=== PATIENT | female | born 1935 | race Caucasian/White ===

== ENCOUNTER 2016-04-30 14:45 | Emergency (ER) | payer MEDICARE, OTHER ==
[2016-04-30] MEDS ORDERED: Aspirin Low Dose CHEW TAB* 81 MG PO ONE (15:46)
--- NOTE | 2016-04-30 16:16 | RAD ---
INDICATION: Fatigue. Recent neck and jaw pain. Associated shortness of breath. COMPARISON: September 20, 2014 CT. TECHNIQUE: Dual energy PA and routine lateral views of the chest were obtained. REPORT: Moderate retrocardiac hiatal hernia with air-fluid level. Elevated lung volumes. No focal pulmonary lesion, alveolar consolidation, pleural effusion, pneumothorax. Negative for cardiomegaly. Unremarkable central pulmonary vasculature. Multilevel thoracic degenerative spondylosis and mild increased thoracic kyphosis. IMPRESSION: Stigmata of probable chronic obstructive pulmonary disease. Unchanged moderate hiatal hernia. No acute cardiopulmonary process evident.
[2016-04-30 16:22] LABS: Hematocrit 45 % (35-47); Hemoglobin 14.9 g/dl (12.0-16.0); Mean Corpuscular HGB Conc 33 g/dl (31-36); Mean Corpuscular Hemoglobin 30 pg (27-31); Mean Corpuscular Volume 89 fL (80-97); Mean Platelet Volume 8 um3 (7.4-10.4); Red Blood Count 5.03 10^6/ul (4.0-5.4); Red Cell Distribution Width 13 % (10.5-15); White Blood Count 7.7 10^3/ul (3.5-10.8)
[2016-04-30 16:38] LABS: Albumin 4.2 g/dL (3.2-5.2); BUN/Creatinine Ratio 19.6 (8-20); Calcium 9.3 mg/dL (8.6-10.3); EGFR African American 75.3 (>60); EGFR Non-African American 58.6 (>60); Globulin 2.6 g/dL (2-4); Magnesium 2.2 mg/dL (1.9-2.7); Potassium 3.8 mmol/L (3.5-5.0); Total Bilirubin 0.3 mg/dL (0.2-1.0); Total Protein 6.8 g/dL (6.4-8.9)
[2016-04-30 16:39] LABS: Troponin I 0.01 ng/mL (<0.04)
[2016-04-30 17:06] LABS: TSH (Thyroid Stimulating Horm) 3.44 mcIU/mL (0.34-5.60)
--- NOTE | 2016-04-30 17:47 | ED ---
Trinidad Deshpande Matthew, scribed for Ralph Breen MD on 04/30/16 at 1716 . Complex/Multi-Sys Presentation - HPI Summary HPI Summary: An 81 y/o female presents to the ED with jaw pain and neck stiffness at 02:00 this morning, which last for 30 minutes. She had a similar symptoms 2 nights ago with similar symptoms and again the symptoms lasted for 30 minutes. Associated symptoms include palpitations, SOB, and mild dizziness. The patient denies chest pain, nausea, vomiting, abdominal pain, diarrhea, fever, chills, and cough. - History Of Current Complaint Chief Complaint: EDGeneral Time Seen by Provider: 04/30/16 17:05 Hx Obtained From: Patient Onset/Duration: Sudden Onset, Lasting Minutes, Resolved Timing: Minutes - 30 Severity Currently: None Severity Initially: Moderate Location: Pain At: - jaw Associated Signs And Symptoms: Positive: Dizziness - mild, SOB, Palpitations, Other - neck stiffness. Negative: Cough, Nausea, Vomiting, Diarrhea, Abdominal Pain, Fever - Allergies/Home Medications Allergies/Adverse Reactions: Allergies Allergy/AdvReac Type Severity Reaction Status Date / Time Lactose AdvReac Mild GI Upset Verified 09/20/14 08:45 PMH/Surg Hx/FS Hx/Imm Hx GI History: Reports: Hx Gastroesophageal Reflux Disease - RELATED TO LACTOSE Musculoskeletal History: Reports: Hx Arthritis - FINGERS Sensory History: Reports: Hx Contacts or Glasses - GLASSES Denies: Hx Hearing Aid Opthamlomology History: Reports: Hx Contacts or Glasses - GLASSES Neurological History: Reports: Other Neuro Impairments/Disorders - FAMILIAL TREMOR - Cancer History Hx Chemotherapy: No Hx Radiation Therapy: No - Surgical History Surgery Procedure, Year, and Place: [id number] PROLAPSE [id number]/2012-RIGHT FOOT SURGERY FOR FRACTURE, appendectomy 2011 Hx Anesthesia Reactions: Yes - 1985-N/V Infectious Disease History: Yes Infectious Disease History: Denies: Traveled Outside the [place] in Last 30 Days - Family History Known Family History: Positive: Cardiac Disease - Mother of [place] at 57 - Social History Alcohol Use: Occasionally Substance Use Type: Reports: None Hx Tobacco Use: No Review of Systems Constitutional: Negative Negative: Fever, Chills Eyes: Negative ENT: Negative Positive: Palpitations - resolved. Negative: Chest Pain Positive: Shortness Of Breath - resolved . Negative: Cough Gastrointestinal: Negative Negative: Abdominal Pain, Vomiting, Diarrhea, Nausea Genitourinary: Negative Musculoskeletal: Other - Neck stiffness Positive: Myalgia - jaw pain - resovled Skin: Negative Neurological: Other - mild dizziness - since resovled Psychological: Normal All Other Systems Reviewed And Are Negative: Yes Physical Exam - Summary Physical Exam Summary: VITAL SIGNS: Reviewed. GENERAL: Patient is a well developed and nourished female who is lying comfortable in the stretcher. Patient is not in any acute respiratory distress. HEAD AND FACE: No signs of trauma. No ecchymosis, hematomas or skull depressions. No sinus tenderness. EYES: PERRLA, EOMI x 2, No injected conjunctiva, no nystagmus. EARS: Hearing grossly intact. Ear canals and tympanic membranes are within normal limits. MOUTH: Oropharynx within normal limits. NECK: Supple, trachea is midline, no adenopathy, no JVD, no carotid bruit, no c- spine tenderness, neck with full ROM. CHEST: Symmetric, no tenderness at palpation LUNGS: Clear to auscultation bilaterally. No wheezing or crackles. CVS: Regular rate and rhythm, S1 and S2 present, no murmurs or gallops appreciated. ABDOMEN: Soft, non-tender. No signs of distention. No rebound no guarding, and no masses palpated. Bowel sounds are normal. EXTREMITIES: FROM in all major joints, no edema, no cyanosis or clubbing. NEURO: Alert and oriented x 3. No acute neurological deficits. Speech is normal and follows commands. SKIN: Dry and warm Triage Information Reviewed: Yes Vital Signs On Initial Exam: Initial Vitals Temp Pulse Resp BP Pulse Ox 98.1 F 79 18 123/70 97 04/30/16 14:46 04/30/16 14:46 04/30/16 14:46 04/30/16 14:46 04/30/16 14:46 Vital Signs Reviewed: Yes Diagnostics - Vital Signs Vital Signs Temp Pulse Resp BP Pulse Ox 04/30/16 17:01 97.9 F 72 18 130/72 97 04/30/16 14:46 98.1 F 79 18 123/70 97 - Laboratory Lab Results: Lab Results 04/30/16 04/30/16 04/30/16 Range/Units 16:10 16:10 16:10 WBC 7.7 (3.5-10.8) 10^3/ul RBC 5.03 (4.0-5.4) 10^6/ul Hgb 14.9 (12.0-16.0) g/dl Hct 45 (35-47) % MCV 89 (80-97) fL MCH 30 (27-31) pg MCHC 33 (31-36) g/dl RDW 13 (10.5-15) % Plt Count 213 (150-450) 10^3/ul MPV 8 (7.4-10.4) um3 Neut % (Auto) 57.6 (38-83) % Lymph % (Auto) 30.3 (25-47) % [place] % (Auto) 7.8 (1-9) % Eos % (Auto) 3.1 (0-6) % Baso % (Auto) 1.2 (0-2) % Absolute Neuts (auto) 4.4 (1.5-7.7) 10^3/ul Absolute Lymphs (auto) 2.3 (1.0-4.8) 10^3/ul Absolute Monos (auto) 0.6 (0-0.8) 10^3/ul Absolute Eos (auto) 0.2 (0-0.6) 10^3/ul Absolute Basos (auto) 0.1 (0-0.2) 10^3/ul Absolute Nucleated RBC 0 10^3/ul Nucleated RBC % 0.1 Sodium 137 (133-145) mmol/L Potassium 3.8 (3.5-5.0) mmol/L Chloride 104 (101-111) mmol/L Carbon Dioxide 25 (22-32) mmol/L Anion Gap 8 (2-11) mmol/L BUN 18 (6-24) mg/dL Creatinine 0.92 (0.51-0.95) mg/dL Est GFR ( Amer) 75.3 (>60) Est GFR (Non-Af Amer) 58.6 (>60) BUN/Creatinine Ratio 19.6 (8-20) Glucose 95 (70-100) mg/dL Lactic Acid 0.8 (0.5-2.0) mmol/L Calcium 9.3 (8.6-10.3) mg/dL Magnesium 2.2 (1.9-2.7) mg/dL Total Bilirubin 0.30 (0.2-1.0) mg/dL AST 21 (13-39) U/L ALT 19 (7-52) U/L Alkaline Phosphatase 61 (34-104) U/L Troponin I 0.01 (<0.04) ng/mL Total Protein 6.8 (6.4-8.9) g/dL Albumin 4.2 (3.2-5.2) g/dL Globulin 2.6 (2-4) g/dL Albumin/Globulin Ratio 1.6 (1-3) TSH Pending Result Diagrams: 04/30/16 16:10 04/30/16 16:10 Lab Statement: Any lab studies that have been ordered have been reviewed, and results considered in the medical decision making process. - Radiology CXR Xray Interpretation: No Acute Changes - IMPRESSION: Stigmata of probable chronic obstructive pulmonary disease. Unchanged moderate hiatal hernia. No acute cardiopulmonary process evident. Radiology Interpretation Completed By: Radiologist - EKG 15:16 Cardiac Rate: NL - 68 bpm EKG Rhythm: Sinus Rhythm EKG Interpretation: No ST elevations EKG Comparison: No Significant Change - 07/26/11 Complex Multi-Symp Course/Dx Assessment/Plan: Blood work WNL. CXR shows stigmata of probable chronic obstructive pulmonary disease, unchanged moderate hiatal hernia, and no acute cardiopulmonary process. EKG shows NSR at 68 bpm w/o ST elevation and similar to 07/26/11. The TSH is also WNL. Since the patient is asymptomatic at this point and has no other complaints. I will discharge the patient home to follow- up with her PCP. She was asked to return to the ER if she develops any chest pain, SOB, dizziness, nausea, or vomiting. The patient was also asked to follow- up with her PCP in the next 3 days. The patient understands and agrees. She is A &Ox3 and hemodynamically stable. She will f/u with PMD and Sales Recruiter for a possible holter monitor. - Diagnoses Differential Diagnoses/HQI/PQRI: Cardiac Ischemia, Other - Arrythmia Provider Diagnoses: Heart palpitations, Arrhythmia Discharge - Discharge Plan Condition: Stable Disposition: HOME Patient Education Materials: Palpitations (ED) Referrals: Jose Maria Moreno MD [Primary Care Provider] - 3 Days Additional Instructions: Please follow-up with your primary care physician. The documentation as recorded by the scribeTrinidad Matthew accurately reflects the service I personally performed and the decisions made by me, Ralph Breen MD.
[2016-04-30 17:53] VITALS: BP 129/67
== END 2016-04-30 17:47 | disposition home or self-care (01) ==
LOC: ED 14:45
DX: I49.9 Cardiac arrhythmia, unspecified (principal); R00.2 Palpitations; R42 Dizziness and giddiness; R06.02 Shortness of breath
CPT/HCPCS: 36415; 71020; 80053; 83605; 83735; 84443; 84484; 85025; 93005; 99282

== ENCOUNTER 2019-01-28 16:51 | Emergency (ER) | payer MEDICARE, OTHER ==
--- NOTE | 2019-01-28 17:12 | ED ---
Adult Trauma - HPI Summary HPI Summary: The patient is an 84 y/o F presenting to [facility] with a chief complaint of sustaining a mechanical fall this afternoon. She reports that she was walking outside and slipped on ice, causing her to fall backwards onto her buttocks. She is now experiencing pain in the tailbone, thoracic back, bilateral elbows, occipital head, and right shoulder. She denies any neck pain or lower extremity pains. She denies any loss of consciousness with the event. Currently, her pain is rated 9/10 in severity. Movement aggravates the pain. She is not on anticoagulants. PMHx: palpitations, HTN, GERD, arthritis in hands. FHx: cardiac disease. Nonsmoker, occasional EtOH, no substance use. Medications reviewed. Allergies noted. - History of Current Complaint Chief Complaint: EDFall Stated Complaint: INJURIES FROM FALL PER PT Time Seen by Provider: 01/28/19 17:06 Hx Obtained From: Patient Mechanism of Injury: Fall - slipped on ice Loss of Consciousness: no loss of consciousness Onset/Duration: Started Minutes Ago, Still Present Onset of Pain: Immediate Onset Severity: Severe Current Severity: Severe Pain Intensity: 9 Pain Scale Used: 0-10 Numeric Location: Head - occipital, Back - thoracic, Extremities - elbows Character: Aching Aggravating Factor(s): Movement Alleviating Factor(s): Nothing Associated Signs & Symptoms: Positive: Other: - pain in the tailbone, thoracic back, bilateral elbows, occipital head, and right shoulder; Negative: neck pain , lower extremity pain. Negative: Loss of Consciousness - Allergy/Home Medications Allergies/Adverse Reactions: Allergies Allergy/AdvReac Type Severity Reaction Status Date / Time lactose Allergy Intermediate GI Upset Verified 01/28/19 16:57 PMH/Surg Hx/FS Hx/Imm Hx Endocrine/Hematology History: Denies: Hx Diabetes Cardiovascular History: Reports: Hx Hypertension Denies: Hx Hypercholesterolemia GI History: Reports: Hx Gastroesophageal Reflux Disease - RELATED TO LACTOSE Musculoskeletal History: Reports: Hx Arthritis - FINGERS Sensory History: Reports: Hx Contacts or Glasses - GLASSES Denies: Hx Hearing Aid Opthamlomology History: Reports: Hx Contacts or Glasses - GLASSES Neurological History: Reports: Other Neuro Impairments/Disorders - FAMILIAL TREMOR - Cancer History Hx Chemotherapy: No Hx Radiation Therapy: No - Surgical History Surgery Procedure, Year, and Place: [id number] PROLAPSE [id number]/2012-RIGHT FOOT SURGERY FOR FRACTURE, appendectomy 2012 Hx Anesthesia Reactions: Yes - 1985-N/V Infectious Disease History: No Infectious Disease History: Denies: Traveled Outside the [place] in Last 30 Days - Family History Known Family History: Positive: Cardiac Disease - Mother of [place] at 57 - Social History Alcohol Use: Occasionally Substance Use Type: Reports: None Hx Tobacco Use: No Smoking Status (MU): Never Smoked Tobacco Review of Systems Positive: Arthralgia - tailbone, Myalgia - thoracic back, bilateral elbows, right shoulder. Negative: Other - lower extremity pains, neck pain Neurological: Other - occipital head pain; Negative: loss of consciousness All Other Systems Reviewed And Are Negative: Yes Physical Exam - Summary Physical Exam Summary: VITAL SIGNS: Reviewed. GENERAL: Patient is a well-developed and nourished female who is lying comfortable in the stretcher. Patient is not in any acute respiratory distress. HEAD AND FACE: No signs of trauma. No ecchymosis, hematomas or skull depressions. No sinus tenderness. EYES: PERRLA, EOMI x 2, No injected conjunctiva, no nystagmus. No photophobia. EARS: Hearing grossly intact. Ear canals and tympanic membranes are within normal limits. MOUTH: Oropharynx within normal limits. NECK: Supple, trachea is midline, no adenopathy, no JVD, no carotid bruit, no c- spine tenderness, neck with full ROM. No meningeal signs, no Kernig's or brudzinskis signs. CHEST: Symmetric, no tenderness at palpation. LUNGS: Clear to auscultation bilaterally. No wheezing or crackles. CVS: Regular rate and rhythm, S1 and S2 present, no murmurs or gallops appreciated. ABDOMEN: Soft, non-tender. No signs of distention. No rebound, no guarding, and no masses palpated. Bowel sounds are normal. EXTREMITIES: Tenderness in the tailbone, tenderness in the right shoulder with decreased ROM but no deformity, tenderness in both elbows with decreased ROM but no deformities, good pulses and good capillary refill in extremities. No edema, no cyanosis or clubbing. NEURO: Alert and oriented x 3. No acute neurological deficits. Speech is normal and follows commands. SKIN: Dry and warm. GCS: 15. Triage Information Reviewed: Yes Vital Signs On Initial Exam: Initial Vitals Temp Pulse Resp BP Pulse Ox 97.8 F 75 16 188/90 98 01/28/19 16:53 01/28/19 16:53 01/28/19 16:53 01/28/19 16:53 01/28/19 16:53 Vital Signs Reviewed: Yes - Sammy Coma Scale Best Eye Response: 4 - Spontaneous Best Motor Response: 6 - Obeys Commands Best Verbal Response: 5 - Oriented Coma Scale Total: 15 Procedures - Sedation Patient Received Moderate/Deep Sedation with Procedure: No Diagnostics - Vital Signs Vital Signs Temp Pulse Resp BP Pulse Ox 01/28/19 16:53 97.8 F 75 16 188/90 98 - Laboratory Lab Statement: Any lab studies that have been ordered have been reviewed, and results considered in the medical decision making process. - Radiology Right Shoulder X-Ray Radiology Interpretation Completed By: ED Physician Summary of Radiographic Findings: No acute fracture or dislocation. ED physician has reviewed and interpreted this imaging report. Pending official read. Bilateral Elbows X-Ray Radiology Interpretation Completed By: ED Physician Summary of Radiographic Findings: No acute fracture or dislocation. ED physician has reviewed and interpreted this imaging report. Pending official read. Lumbar Spine X-Ray Radiology Interpretation Completed By: ED Physician Summary of Radiographic Findings: No acute fracture or dislocation. ED physician has reviewed and interpreted this imaging report. Pending official read. Sacrum/Coccyx X-Ray Radiology Interpretation Completed By: ED Physician Summary of Radiographic Findings: No acute fracture or dislocation. ED physician has reviewed and interpreted this imaging report. Pending official read. - CT Brain CT CT Interpretation Completed By: Radiologist Summary of CT Findings: Impression: 1. No acute intracranial abnormality is identified. 2. Mild chronic small vessel ischemic disease is likely. ED physician has reviewed this report. Cervical Spine CT CT Interpretation Completed By: Radiologist Summary of CT Findings: Impression: 1. No fracture or traumatic malalignment of the cervical spine. 2. No severe osseous encroachment of the spinal canal. Moderate bilateral neural foraminal stenosis at C5-C6. ED physician has reviewed this report. Re-Evaluation - Re-Evaluation First Eval Re-Evaluation Time: 18:50 Comment: We discussed all results and plan for discharge. A sling will be placed on the right arm since she is complaining of right shoulder pain. Adult Trauma Course/Dx - Course Assessment/Plan: Patient is an 84-year-old female who presents to the emergency department with a chief complaint of an accidental fall. Head CT impression: No acute intracranial abnormality. Mild chronic small vessel ischemic changes. Cervical spine CT impression: No fracture or traumatic malalignment of the cervical spine. X-ray of the right elbow, left elbow, right shoulder no fracture dislocations. X-ray of the coccyx and sacrum negative for fracture or dislocation. X-ray of the lumbar spine negative for fracture or dislocation. The patient is able to ambulate with no significant discomfort. She continues to have some discomfort in the right shoulder; therefore, I placed the patient in the shoulder immobilizer and she requested naproxen. Patient was instructed to return to the emergency room or see her orthopedic doctor if she continues to have pain. The patient understands and agrees. Also instructed the patient that these are only the preliminary reports. The radiologist will read the x- rays in the morning. If there are any changes, we will give her a copy. The patient understands and agrees. Patient is hemodynamically stable alert and oriented 3. - Diagnoses Differential Diagnosis/HQI/PQRI: Positive: Abrasion(s), Contusion(s), Fracture, Dislocation, Hematoma(s), Sprain, Strain Provider Diagnoses: Accident due to mechanical fall without injury, Head contusion, Shoulder pain, Elbow pain Discharge ED - Sign-Out/Discharge Documenting (check all that apply): Patient Departure - Patient will be discharged home. - Discharge Plan Condition: Stable Disposition: HOME Patient Education Materials: Fall Prevention for Older Adults (ED), Head Injury (ED), Elbow Sprain (ED), Shoulder Pain (ED) Referrals: Jose Maria Moreno MD [Primary Care Provider] - 3 Days Kenney Cha MD [Medical Doctor] - 3 Days Additional Instructions: Follow up with orthopedics if you continue to experience pain. Follow up with your primary care provider in 2-3 days. Return to the emergency department for any new or worsening symptoms. - Billing Disposition and Condition Condition: STABLE Disposition: Home - Attestation Statements Document Initiated by Scribe: Yes Documenting Scribe: Chen Howell Provider For Whom Anibe is Documenting (Include Credential): Dr. Ralph Breen MD Scribe Attestation: Chen Deshpande scribed for Dr. Ralph Breen MD on 01/29/19 at 0947. Scribe Documentation Reviewed: Yes Provider Attestation: The documentation as recorded by the anibChen haines accurately reflects the service I personally performed and the decisions made by me, Dr. Ralph Breen MD Status of Scribe Document: Viewed
[2019-01-28] MEDS ORDERED: Ibuprofen TAB* 600 MG PO ONE (18:11)
[2019-01-28] MEDS ORDERED: Naproxen TAB* 250 MG PO ONE (18:49)
[2019-01-28 19:25] VITALS: BP 159/103
== END 2019-01-28 19:10 | disposition home or self-care (01) ==
LOC: ED 16:51
DX: S00.93XA Contusion of unspecified part of head, initial encounter (principal); M25.511 Pain in right shoulder; M25.522 Pain in left elbow; M25.521 Pain in right elbow; M85.811 Other specified disorders of bone density and structure, right shoulder; W00.0XXA Fall on same level due to ice and snow, initial encounter; Y92.9 Unspecified place or not applicable; I10 Essential (primary) hypertension; K21.9 Gastro-esophageal reflux disease without esophagitis; Z90.710 Acquired absence of both cervix and uterus; Z90.89 Acquired absence of other organs
CPT/HCPCS: 70450; 72100; 72125; 72220; 99282; A9270-GY